=== PATIENT | male | born 1990 | race Caucasian/White ===

== ENCOUNTER 2023-05-09 19:07 | Emergency (ER) | payer OTHER, SELFPAY ==
[2023-05-09 19:18] VITALS: BP 139/90; PULSE 83; RESP 16; TEMP 36.7; O2SAT 100
[2023-05-09 19:37] VITALS: BP 139/90; PULSE 83; RESP 16; TEMP 36.7; O2SAT 100
--- NOTE | 2023-05-09 19:37 | ED.ANIMALBIT ---
HPI - Animal Bite General Chief Complaint: Animal Bite Stated Complaint: cat biter right thumb History of Present Illness HPI narrative: Pt is a 32 y/o male, presents to with a cat bite of the right thumb, sustained two days ago by his own cat. Cat's immunizations are UTD. His last tetanus was received 2 years ago. He notes the area is slightly sore today and caused him concern. He denies fevers or chills, drainage from the wound or any other skin surface injuries. Related Data Allergies Allergy/AdvReac Type Severity Reaction Status Date / Time No Known Allergies Allergy Verified 05/09/23 19:18 Review of Systems Integumentary/Breasts: Skin/Breast: Reports as per HPI Exam Const: General: cooperative, healthy appearing, comfortable and well developed Orientation/consciousness: oriented to person, oriented to place, oriented to time and patient oriented x3 Limitations: no limitations and altered mental status HENMT: Head: normal to inspection, No palpable skull fracture present and normocephalic Ears: hearing grossly normal bilaterally, external ears normal and TM's normal bilaterally Face/Nose/Sinus: Normal external nose present and Normal nares present Face and sinus: normal facial exam Throat: posterior oropharynx normal Eyes: General: appearance normal, both eyes and all related structures Conjunctivae: conjunctivae normal Pupils: Equal, round and reactive pupils present EOM: EOMs intact bilaterally Neck: Neck: normal visual inspection and full ROM Resp: Effort & Inspection: normal respiratory effort Auscultation: clear to auscultation bilaterally Cardio: Rate: regular rate Rhythm: regular rhythm Heart sounds: S1 normal heart sound present and S2 normal heart sound present Peripheral pulses: Peripheral pulses 2+ throughout Skin: Other: pt has a punctate scabbed lesion to the right thumb, ulnar aside, at the IP joint. No surrounding erythema. There is a second abrasion at the base of the nail plate. No erythema or drainage. No bleeding. Volar aspect of the right thumb is unremarkable. ROM intact. Course Course Emergency Course: plan to treat with Augmentin, close PCP FU if pain increases, ER if streaking or fevers arise. Pt is agreeable. Level of Care: Express Care Visit ([id number]) Vital Signs Vital signs: Vital Signs Temperature 36.7 C 05/09/23 19:18 Pulse Rate 83 05/09/23 19:18 Respiratory Rate 16 05/09/23 19:18 Blood Pressure 139/90 05/09/23 19:18 Pulse Oximetry 100 05/09/23 19:18 Oxygen Delivery Room Air 05/09/23 19:18 Temperature 36.7 C 05/09/23 19:18 Pulse Rate 83 05/09/23 19:18 Respiratory Rate 16 05/09/23 19:18 Blood Pressure 139/90 05/09/23 19:18 Pulse Oximetry 100 05/09/23 19:18 Oxygen Delivery Room Air 05/09/23 19:18 MDM - Animal Bite MDM Narrative Medical decision making narrative: abx, PCP FU Differential Diagnosis Differential diagnosis: Likely bite by animal and cat bite Discharge Plan Discharge Clinical Impression: Cat bite Qualifiers: Encounter type: initial encounter Qualified Code(s): W55.01XA - Bitten by cat, initial encounter Patient Disposition: Home, Self-Care Condition: Stable Instructions: Antibiotic Form, Animal Bite (ED) Additional Instructions: KEEP WOUND CLEAN AND DRY. COMPLETE ANTIBIOTICS DIRECTED. ADD AN OVER THE COUNTER PROBIOTIC IF DIARRHEA ARISES. SEE YOUR PRIMARY CARE PROVIDER IF SYMPTOMS ARE NOT RESOLVING. Prescriptions: New amoxicillin-pot clavulanate 875-125 mg tablet 1 tablet PO Q12H Qty: 20 0RF Follow-up/Referrals: PHYSICIAN,[employer] [employer] [Primary Care Provider] - Time of Disposition: 19:49
== END 2023-05-09 19:51 | disposition home or self-care (01) ==
PROVIDERS: Emergency Provider Nurse Practitioner Family
DX: S61.031A Puncture wound without foreign body of right thumb without damage to nail, initial encounter (principal); W55.01XA Bitten by cat, initial encounter
CPT/HCPCS: 99213; G0463